=== PATIENT | female | born 1975 | race Asian ===

== ENCOUNTER 2016-12-19 19:22 | Emergency (ER) | payer BC ==
[~2016-12-19] VITALS: Ht 152.4 cm; Wt 63.0 kg
[2016-12-19] MEDS ORDERED: ONDANSETRON ODT 4 MG PO ONE (20:00)
[2016-12-19 20:09] LABS: ASPARTATE AMINO TRANSFERASE 13 U/L (15-37); BLOOD UREA NITROGEN 9 mg/dL (7-18)
[2016-12-19 20:59] LABS: PATH.CAST-FLAG NOT PRESENT; SPERM-FLAG NOT PRESENT; SRC-FLAG NOT PRESENT; XTAL-FLAG NOT PRESENT; YLC-FLAG NOT PRESENT
[2016-12-19 22:17] VITALS: BP 127/74
== END 2016-12-19 22:19 | disposition home or self-care (01) ==
LOC: ED 22:06
DX: O20.0 Threatened abortion (principal); Z3A.12 12 weeks gestation of pregnancy
CPT/HCPCS: 36415; 76801; 80053; 81001; 84702; 85025; 86901; 99285

== ENCOUNTER 2017-01-05 06:45 | Observation (INO) | payer BC ==
[~2017-01-05] VITALS: Ht 152.4 cm; Wt 66.8 kg
[2017-01-05] VITALS (7 sets, daily range): BP systolic 84–140; BP diastolic 60–68
[2017-01-05] MEDS ORDERED: MORPHINE SULFATE 4 MG/ML, 1ML ONE (07:16)
[2017-01-05] MEDS ORDERED: ONDANSETRON 2MG/ML, 2ML ONE ×2 (07:16→09:26)
[2017-01-05] MEDS ORDERED: MORPHINE SULFATE 4 MG/ML, 1ML IVPush PRN (07:30)
[2017-01-05] MEDS ORDERED: SODIUM CHLORIDE 0.9% 1,000ML IVBOLUS ONE ×2 (07:30→08:00)
[2017-01-05] MEDS ORDERED: SODIUM CHLORIDE FLUSH 10ML SYR IVF ONE (07:30)
[2017-01-05] MEDS ORDERED: ONDANSETRON 2MG/ML, 2ML IVPush ONE (07:30)
[2017-01-05 07:36] LABS: ASPARTATE AMINO TRANSFERASE 17 U/L (15-37); BLOOD UREA NITROGEN 6 mg/dL (7-18)
[2017-01-05 07:56] LABS: DIFF TOTAL CELLS COUNTED 100 CELL DIFF
[2017-01-05 07:58] LABS: VERIFY COUNTS? YES
[2017-01-05] MEDS ORDERED: HYDROmorphone 1 MG/ML, 1ML ONE (08:32)
[2017-01-05] MEDS ORDERED: OXYTOCIN 10 UNITS/ML, 1ML IM ONE (09:00)
[2017-01-05] MEDS ORDERED: SUCCINYLCHOLINE 20 MG/ML, 10ML ONE (09:26)
[2017-01-05] MEDS ORDERED: NEOSTIGMINE 1 MG/ML, 10ML ONE (09:26)
[2017-01-05] MEDS ORDERED: GLYCOPYRROLATE 0.2MG/1ML ONE (09:26)
[2017-01-05] MEDS ORDERED: ETOMIDATE 40 MG/20 ML ONE (09:26)
[2017-01-05] MEDS ORDERED: CEFAZOLIN 1,000 MG ONE (09:26)
[2017-01-05] MEDS ORDERED: ROCURONIUM 10 MG/ML ONE (09:26)
[2017-01-05] MEDS ORDERED: METHYLERGONOVINE 0.2 MG/ML IM ONE (09:48)
[2017-01-05] MEDS ORDERED: CARBOPROST TROMETHAMINE 250 MCG/ML, 1ML IM ONE (09:55)
[2017-01-05] MEDS ORDERED: MEPERIDINE/PF 25MG/0.5ML IVPush PRN (10:00)
[2017-01-05] MEDS ORDERED: LABETALOL 5MG/ML, 20ML IV PRN (10:00)
[2017-01-05] MEDS ORDERED: ONDANSETRON 2MG/ML, 2ML IVPush PRN (10:00)
[2017-01-05] MEDS ORDERED: ALBUTEROL SULFATE 2.5 MG/3 ML NPPB PRN (10:00)
[2017-01-05] MEDS ORDERED: hydrALAzine 20 MG/ML, 1ML IV PRN (10:00)
[2017-01-05] MEDS ORDERED: FENTANYL PF 100 MCG/2ML IV PRN ×2 (10:00→12:21)
[2017-01-05] MEDS ORDERED: EPHEDRINE 50 MG/ML, 1ML IVPush PRN (10:00)
[2017-01-05] MEDS ORDERED: HYDROmorphone 1 MG/ML, 1ML IV PRN (10:00)
[2017-01-05] MEDS ORDERED: OXYcodone 5 MG/5 ML ORAL.SOL UDC PO PRN (10:00)
[2017-01-05] MEDS ORDERED: ACETAMINOPHEN 325 MG TABLET PO PRN (10:00)
[2017-01-05] MEDS ORDERED: METOPROLOL 1 MG/ML, 5ML IV PRN (10:00)
[2017-01-05] MEDS ORDERED: OXYTOCIN 30U/ 0.9% NaCL 500ML 500 ML ONE (10:05)
[2017-01-05] MEDS ORDERED: MISOPROSTOL 200 MCG TABLET ONE (10:07)
[2017-01-05] MEDS ORDERED: FENTANYL PF 100 MCG/2ML ONE (10:20)
[2017-01-05] MEDS ORDERED: MEPERIDINE/PF 25MG/0.5ML ONE (10:35)
[2017-01-05] MEDS ORDERED: KETOROLAC 30 MG/1 ML ONE (11:01)
[2017-01-05] MEDS ORDERED: OXYcodone 5 MG/5 ML ORAL.SOL UDC ONE (11:01)
[2017-01-05] MEDS ORDERED: ACETAMINOPHEN 650 MG/20.3 ML UDC ONE (11:01)
[2017-01-05] MEDS ORDERED: KETOROLAC 30 MG/1 ML IVPush ONE (11:30)
[2017-01-05 11:49] LABS: PROTIME 11.8 Seconds (9.6-11.5)
[2017-01-05] MEDS ORDERED: ONDANSETRON 2MG/ML, 2ML IV PRN (12:21)
[2017-01-05] MEDS ORDERED: PROMETHAZINE 12.5 MG SUPP PR ONE (12:21)
[2017-01-05] MEDS ORDERED: HYDROcodone/APAP 7.5-325MG/15ML UDC PO PRN (13:30)
[2017-01-05 14:00] LABS: DIFF TOTAL CELLS COUNTED 100 CELL DIFF
[2017-01-05 14:03] LABS: VERIFY COUNTS? YES
[2017-01-05] MEDS: CEFOTETAN PMX 2GM/50ML 50 ML IV SCH (14:22)
[2017-01-05] MEDS: LACTATED RINGERS 1,000 ML IV SCH (14:59)
[2017-01-05] MEDS: DOXYCYCLINE 100 MG in DEXTROSE 5% 250 ML IV SCH (14:59)
[2017-01-05 18:30] LABS: DIFF TOTAL CELLS COUNTED 100 CELL DIFF
[2017-01-05 18:56] LABS: VERIFY COUNTS? YES
[2017-01-06 00:51] VITALS: BP 95/62
[2017-01-06] MEDS: KETOROLAC 30 MG/1 ML IV PRN ×2 (01:30→10:07)
[2017-01-06] MEDS: LACTATED RINGERS 1,000 ML IV SCH ×2 (01:36→06:29)
[2017-01-06] MEDS: CEFOTETAN PMX 2GM/50ML 50 ML IV SCH (02:45)
[2017-01-06] MEDS: DOXYCYCLINE 100 MG in DEXTROSE 5% 250 ML IV SCH (03:30)
[2017-01-06 06:46] VITALS: BP 110/69
[2017-01-06 13:03] VITALS: BP 90/56
[2017-01-06] MEDS ORDERED: DOXY100T PO (13:54)
[2017-01-06] MEDS ORDERED: IBUP-1222 PO (13:55)
== END 2017-01-06 14:00 | disposition home or self-care (01) ==
LOC: OR 09:08 → INTOOBSV 09:10 → EDIP 09:10 → OR 09:30 → 4NOR 11:56 → OBSVTOIN 01-06 10:27 → INTOOBSV 01-06 10:27 → DCLOUNGE 01-06 13:30
PROVIDERS: ADMIT Obstetrics & Gynecology; ATTEND Obstetrics & Gynecology
DX: O03.1 Delayed or excessive hemorrhage following incomplete spontaneous abortion (principal); O26.52 Maternal hypotension syndrome, second trimester; O99.282 Endocrine, nutritional and metabolic diseases complicating pregnancy, second trimester; E03.9 Hypothyroidism, unspecified; O99.012 Anemia complicating pregnancy, second trimester; O09.522 Supervision of elderly multigravida, second trimester; O99.112 Other diseases of the blood and blood-forming organs and certain disorders involving the immune mechanism complicating pregnancy, second trimester; D72.829 Elevated white blood cell count, unspecified; Z82.49 Family history of ischemic heart disease and other diseases of the circulatory system; Z82.3 Family history of stroke; Z83.3 Family history of diabetes mellitus; M41.20 Other idiopathic scoliosis, site unspecified
CPT/HCPCS: 36415; 59812; 76805; 80047; 80053; 83605; 84145; 85025; 85049; 85379; 85384; 85610; 85730; 86850; 86900; 86923; 87040; 88300; 88305; 96365; 96366; 96367; 96368; 96372; 96375; 96376; 99285; G0378; J0330; J0690; J1885; J2175; J2210; J2405; J2590; J2710; J3010; J7030; J7060; J7120; P9016; P9017; S0074; 87150; J3490